=== PATIENT | female | born 1965 | race Caucasian/White ===

== ENCOUNTER 2021-09-22 13:58 | Emergency (ER) | payer BC, SELFPAY ==
[~2021-09-22] VITALS: Ht 167.6 cm; Wt 81.6 kg
--- NOTE | 2021-09-22 14:00 | NUR ---
Patient to ER bed H2 to gown for evaluation. Side rails up.
--- NOTE | 2021-09-22 14:02 | NUR ---
Pt borught by Alphonso [email or web address], pt presents to ER with dizziness/ neck/back pain, pt states she has Hx of Vertigo, skin pink and warm, cap refill <3, VSS,respirations even and unlabored, pt states she had covid vaccine.
[2021-09-22 14:15] VITALS: BP_SYST 130
--- NOTE | 2021-09-22 14:24 | NUR ---
Dr Rod evaluating patient at bedside
[2021-09-22] MEDS ORDERED: SUMAtriptan SUCCINATE 6 MG/0.5 ML VIAL SUBCUT ONE (14:30)
[2021-09-22] MEDS ORDERED: MECLIZINE HCL 25 MG TABLET (ANITVERT) PO ONE (14:30)
[2021-09-22] MEDS ORDERED: RIZATRIPTAN BENZOATE 10 MG PO ONE (14:45)
[2021-09-22] MEDS ORDERED: MECL-108 PO (15:50)
--- NOTE | 2021-09-22 15:52 | NUR ---
Patient given written and verbal discharge instructions and verbalizes understanding. ER MD discussed with patient the results and treatment provided. Patient in stable condition. ID arm band removed. Rx of Meclizine Hcl 25mg tablet given. Patient educated on pain management and to follow up with PMD. Opportunity for questions provided and answered. Medication side effect fact sheet provided.
[2021-09-22 16:01] VITALS: BP_SYST 134
== END 2021-09-22 16:01 | disposition home or self-care (01) ==
LOC: SED 13:58
DX: G43.909 Migraine, unspecified, not intractable, without status migrainosus (principal); R42 Dizziness and giddiness; U09.9 Post COVID-19 condition, unspecified
CPT/HCPCS: 71045; 93005; 99283; J8597; J3030